=== PATIENT | male | born 1995 ===

== ENCOUNTER 2017-10-28 00:25 | Day surgery (SDC) | payer BC ==
[2017-10-28] VITALS (8 sets, daily range): BP systolic 133–166; BP diastolic 81–92
[~2017-10-28] VITALS: Ht 180.3 cm; Wt 95.7 kg
[~2017-10-28 00:25] MED LIST: LAN30PT PO; LISI5TAB25 PO; MYCO500T28 PO; PRAV20TA65 PO; TACR5CAP PO
[2017-10-28] MEDS ORDERED: ceFAZolin(*) 2GM/D5W 50ML 50 ML IVPB ONE (11:30)
[2017-10-28] MEDS ORDERED: LIDOCAINE/SOD BICARB 8.4% SYR ID ONE (11:30)
[2017-10-28] MEDS ORDERED: NORMOSOL R SOLN(*) 1000 ML BAG 1,000 ML IV PRN (11:30)
[2017-10-28] MEDS ORDERED: MIDAZOLAM 2 MG/2 ML VIAL IVP ONE (11:30)
[2017-10-28] MEDS ORDERED: CELECOXIB 200 MG CAP PO ONE (11:30)
[2017-10-28] MEDS ORDERED: ROPIVACAINE 0.2% 20 ML VIAL ONE (11:48)
[2017-10-28] MEDS ORDERED: DEXAMETHASONE SOD PHOS 10MG/ML ONE (12:07)
[2017-10-28] MEDS ORDERED: ONDANSETRON 4 MG/2 ML VIAL ONE (12:07)
[2017-10-28] MEDS ORDERED: PROPOFOL EMUL(*) 10MG/ML 20 ML 40 ML ONE (12:07)
[2017-10-28] MEDS ORDERED: fentaNYL CITR 100 MCG/2 ML AMP ONE ×4 (12:07→14:40)
[2017-10-28] MEDS ORDERED: MEPERIDINE 50 MG/ML SYR ONE (13:38)
[2017-10-28] MEDS ORDERED: HYDR-385 PO (13:51)
[2017-10-28] MEDS ORDERED: KETOROLAC 30 MG/ML VIAL ONE (15:13)
[2017-10-28] MEDS ORDERED: APAP/HYDROCODONE 325/7.5 TAB ONE (16:40)
--- NOTE | 2017-10-29 20:38 | OPERATIVE REPORT 1 ---
EVENT DATE: October 28, 2017 SURGEON: Michael Rogers MD ANESTHESIOLOGIST: Bharat Arias MD ANESTHESIA: General. ELECTRICIAN DECK: KARINA Calderon PREOPERATIVE DIAGNOSIS Right knee medial meniscus tear. POSTOPERATIVE DIAGNOSES 1. Right knee bucket handle-type tear of medial meniscus with central horizontal component in the red-white zone. 2. Hypertrophic medial plica with non-articular kissing lesion on the medial femoral condyle. PROCEDURE PERFORMED Right knee arthroscopy with one-side repair medial meniscus and resection of medial plica band. IMPLANTS Six [employer] 360 FasT-Fix meniscal suturing devices. SPECIMENS None. COMPLICATIONS None. BLOOD LOSS Minimal. DESCRIPTION OF OPERATION The patient received appropriate preoperative antibiotics. He was brought to the OR where Dr. Arias performed general anesthesia. A right thigh tourniquet was placed. The right lower extremity was prepped and draped in the usual sterile fashion. The limb was exsanguinated, and the tourniquet was inflated to 250 mmHg. A lateral portal was established, followed by a medial portal. I went in the medial compartment. Articular cartilage was intact on both sides of the joint, but there was a tear, the majority of it being vertical, but a central area of horizontal component also going from posterior horn to half way between the junction of the middle and anterior thirds and the anterior horn. This was in the red-white zone. It was reduced. When I went into the joint, it was easily dislocatable. I only rasped the capsular and remaining meniscal margin, shaved this, and then repaired from posterior to anterior utilizing six 360 FasT-Fix suturing devices in vertical mattress fashion. The meniscus was now stable with probing. The medial gutter was entered. We noted an articular kissing lesion on the medial femoral condyle and a hypertrophic medial plica. The plica was resected with a shaver. Articular cartilage was intact in the patellofemoral joint. There were no loose bodies in the gutters or pouch. Notch showed intact ACL and PCL. Lateral compartments showed intact articular and meniscal cartilage. Instrumentation was removed. The port was closed subcutaneously with 4-0 Monocryl, followed by Steri-Strips. Injection of the portal was done with bupivacaine, followed by a compressive dressing. The patient will be in a T-Scope brace in full extension. He will be touchdown weightbearing with crutches. Range of motion with therapy will be from zero to 90 degrees, no resistance. I will see him next week in our [facility] [facility]. MTDD
== END 2017-10-28 15:06 | disposition home or self-care (01) ==
LOC: OR 00:25
PROVIDERS: ATTEND Orthopaedic Surgery
DX: S83.211A Bucket-handle tear of medial meniscus, current injury, right knee, initial encounter (principal)
CPT/HCPCS: 29881; 97116; C1713; J1100; J1885; J2175; J2405; J2704; J2795; J3010; J0690